=== PATIENT | female | born 1970 | race Caucasian/White ===

== ENCOUNTER 2021-09-05 08:00 | Outpatient (RCR) | payer BC | END 2021-09-12 | LOC: PT 08:00 | PROVIDERS: ATTEND Neurological Surgery | DX: M47.897 Other spondylosis, lumbosacral region (principal) ==

== ENCOUNTER 2021-09-16 07:38 | Outpatient (RCR) | payer BC ==
[2021-10-04] MEDS ORDERED: ZESTRIL2.5 MG PO (10:05)
[2021-10-04] MEDS ORDERED: PROGESTERONE100 MG PO (10:06)
[2021-10-04] MEDS ORDERED: LEXAPRO20 MG PO (10:06)
[2021-10-04] MEDS ORDERED: HEMOCYTE PLUS1 EACH PO (10:06)
[2021-10-04] MEDS ORDERED: ESTRADIOL1 MG PO (10:06)
[2021-10-04] MEDS ORDERED: METOPROLOL SUCC25 MG PO (10:06)
[2021-10-04] MEDS ORDERED: FENOFIBRATE145 MG PO (10:06)
[2021-10-04] MEDS ORDERED: GABAPENTIN100 MG PO (10:07)
[2021-10-04] MEDS ORDERED: VIT B12 INJ (10:07)
[2021-10-04] MEDS ORDERED: VIT D PO (10:07)
[2021-10-04] MEDS ORDERED: BUSPIRONE HCL5 MG PO (10:07)
== END 2021-10-12 ==
LOC: PT 07:38
PROVIDERS: ATTEND Neurological Surgery
DX: M47.897 Other spondylosis, lumbosacral region (principal)

== ENCOUNTER → 2021-10-10 | Day surgery (SDC) | payer BC ==
[~2021-10-10] MED LIST: BUSPIRONE HCL5 MG PO; ESTRADIOL1 MG PO; FENOFIBRATE145 MG PO; GABAPENTIN100 MG PO; HEMOCYTE PLUS1 EACH PO; IOPAMIDOL 200 MG/ML 20 ML VIAL IT ONE; LEXAPRO20 MG PO; LIDOCAINE HCL 1% 30ML-PF VIAL ONE; LIDOCAINE HCL 2% LOCAL INJ 5 ML SDV VIAL INJ ONE; METOPROLOL SUCC25 MG PO; MIDAZOLAM HCL 2 MG/2 ML VIAL ONE; POVIDONE IODINE 0.05% 0.05 % ML PO ONE; PROGESTERONE100 MG PO; PROPOFOL IV EMULSION 10 MG/ML 20 ML VIAL ONE; TRIAMCINOLONE ACET 40 MG/ML VIAL ONE; VIT B12 INJ; VIT D PO; ZESTRIL2.5 MG PO
[2021-10-10 07:15] VITALS: BP 114/72
== END | disposition home or self-care (01) ==
LOC: OR 05:14
PROVIDERS: ATTEND Physical Medicine & Rehabilitation Pain Medicine
DX: M47.896 Other spondylosis, lumbar region (principal); R93.7 Abnormal findings on diagnostic imaging of other parts of musculoskeletal system; M46.96 Unspecified inflammatory spondylopathy, lumbar region; M25.40 Effusion, unspecified joint; G47.33 Obstructive sleep apnea (adult) (pediatric); I10 Essential (primary) hypertension; E78.5 Hyperlipidemia, unspecified; N20.0 Calculus of kidney; E78.00 Pure hypercholesterolemia, unspecified; E61.1 Iron deficiency; F41.9 Anxiety disorder, unspecified; Z01.810 Encounter for preprocedural cardiovascular examination; Z01.812 Encounter for preprocedural laboratory examination; Z20.822 Contact with and (suspected) exposure to COVID-19; Z79.899 Other long term (current) drug therapy
CPT/HCPCS: 64493; 64494; 93005; J2001 ×2; J2250; J2704; J3301; Q9967; U0002; 77003